=== PATIENT | female | born 1965 | race Caucasian/White ===

== ENCOUNTER 2017-02-14 01:40 | Emergency (ER) | payer MEDICAID ==
[~2017-02-14] VITALS: Ht 167.6 cm; Wt 90.7 kg
[2017-02-14 02:25] VITALS: BP 148/95
[2017-02-14 02:28] LABS: Basophils # (auto) 0.1 uL; Basophils % (auto) 0.9 % (0.0-2.0); Eosinophils # (auto) 0.4 uL; Eosinophils % (auto) 3.2 % (0.0-7.0); Hematocrit 45.5 % (36.0-46.0); Hemoglobin 15.5 g/dL (12.2-16.2); Lymphocytes % (auto) 22.1 % (10.0-50.0); Mean Corpuscular Hemoglobin 29.7 pg (28.0-32.0); Mean Corpuscular Volume 87.3 fL (80.0-100.0); Mean Platelet Volume 9.1 fL (6.9-10.8); Monocytes # (auto) 0.7 uL; Monocytes % (auto) 4.9 % (0.0-12.0); Neutrophils # (auto) 9.2 uL; Neutrophils % (auto) 68.9 % (37.0-80.0); Platelet Count (auto) 263 10^3/uL (140-450); White Blood Cell 13.4 10^3/uL (4.4-10.8)
[2017-02-14 03:21] LABS: Albumin 3.8 g/dL (3.4-5.0); BUN/Creatinine Ratio 23.7; Calcium 9.1 mg/dL (8.5-10.1); Potassium 4.3 mmol/L (3.5-5.1)
[2017-02-14 03:23] LABS: Bilirubin, Total 0.3 mg/dL (0.2-1.0); Total Protein 7.9 g/dL (6.4-8.2)
== END 2017-02-14 03:07 | disposition home or self-care (01) ==
LOC: ER 01:44
DX: L02.11 Cutaneous abscess of neck (principal); Z88.8 Allergy status to other drugs, medicaments and biological substances
CPT/HCPCS: 36415; 80053; 85025

== ENCOUNTER 2018-02-26 13:19 | Emergency (ER) | payer MEDICAID ==
[~2018-02-26] VITALS: Ht 167.6 cm; Wt 108.4 kg
[2018-02-26 13:36] VITALS: BP 131/63
== END 2018-02-26 15:19 | disposition home or self-care (01) ==
LOC: ER 13:19
DX: S30.861A Insect bite (nonvenomous) of abdominal wall, initial encounter (principal); Z88.8 Allergy status to other drugs, medicaments and biological substances; W57.XXXA Bitten or stung by nonvenomous insect and other nonvenomous arthropods, initial encounter; Y93.89 Activity, other specified; Y99.8 Other external cause status; Y92.89 Other specified places as the place of occurrence of the external cause

== ENCOUNTER 2018-03-01 19:06 | Inpatient (IN) | payer MEDICAID ==
[~2018-03-01] VITALS: Ht 167.6 cm; Wt 112.6 kg
[2018-03-01 21:28] LABS: Basophils # (auto) 0.1 uL; Basophils % (auto) 0.8 % (0.0-2.0); Eosinophils # (auto) 0.3 uL; Eosinophils % (auto) 2.7 % (0.0-7.0); Hematocrit 44.1 % (36.0-46.0); Hemoglobin 14.8 g/dL (12.2-16.2); Lymphocytes # (auto) 2.8 uL; Lymphocytes % (auto) 22.2 % (10.0-50.0); Mean Corpuscular Hemoglobin 29.3 pg (28.0-32.0); Mean Corpuscular Hgb Conc. 33.5 g/dL (32.0-36.0); Mean Corpuscular Volume 87.5 fL (80.0-100.0); Monocytes # (auto) 0.7 uL; Monocytes % (auto) 5.4 % (0.0-12.0); Neutrophils # (auto) 8.7 uL; Neutrophils % (auto) 68.9 % (37.0-80.0); Nucleated Red Blood Cells % 0.2 %; Platelet Count (auto) 357 10^3/uL (140-450); Red Blood Cells 5.04 10^6/uL (4.0-5.20); Red Cell Distribution Width 13.2 % (11.8-14.3); White Blood Cell 12.6 10^3/uL (4.4-10.8)
[2018-03-01 21:37] LABS: Albumin 4.2 g/dL (3.4-5.0); BUN/Creatinine Ratio 21.3; Calcium 8.9 mg/dL (8.5-10.1); Potassium 3.7 mmol/L (3.5-5.1)
[2018-03-01] MEDS ORDERED: VANCOMYCIN 1GM/250ML 250 ML IV ONE (21:45)
[2018-03-01] MEDS ORDERED: cefTRIAXone 1GM/50ML D5W 50 ML IV ONE (21:45)
[2018-03-01 21:47] LABS: Bilirubin, Total 0.5 mg/dL (0.2-1.0)
[2018-03-02] MEDS: SODIUM CHLORIDE 0.9% 1,000 ML IV SCH ×2 (02:00→14:34)
[2018-03-02] MEDS ORDERED: HYDROcodone-ACET 5/325MG TAB PO PRN (02:00)
[2018-03-02] MEDS ORDERED: ONDANSETRON HCL 4 MG/2 ML VIAL IV PRN (02:00)
[2018-03-02] MEDS ORDERED: ACETAMINOPHEN 500 MG TAB PO PRN (02:00)
[2018-03-02 03:15] VITALS: BP 134/76
[2018-03-02 04:59] VITALS: BP 150/74
[2018-03-02] MEDS: LEVOFLOXACIN 500MG 100 ML IV SCH (05:32)
[2018-03-02] MEDS: CLINDAMYCIN 600MG IV 50 ML IV SCH ×3 (06:02→21:31)
[2018-03-02 09:00] VITALS: BP 98/54
[2018-03-02 10:24] LABS: Basophils # (auto) 0.1 uL; Eosinophils # (auto) 0.5 uL; Hematocrit 41.1 % (36.0-46.0); Hemoglobin 13.8 g/dL (12.2-16.2); Lymphocytes # (auto) 1.6 uL; Lymphocytes % (auto) 17.8 % (10.0-50.0); Mean Corpuscular Hemoglobin 29.4 pg (28.0-32.0); Mean Corpuscular Hgb Conc. 33.5 g/dL (32.0-36.0); Mean Corpuscular Volume 87.6 fL (80.0-100.0); Monocytes # (auto) 0.7 uL; Monocytes % (auto) 7.6 % (0.0-12.0); Neutrophils # (auto) 6.3 uL; Neutrophils % (auto) 68.6 % (37.0-80.0); Platelet Count (auto) 291 10^3/uL (140-450); Red Cell Distribution Width 13.6 % (11.8-14.3); White Blood Cell 9.2 10^3/uL (4.4-10.8)
[2018-03-02 10:40] LABS: BUN/Creatinine Ratio 26.1; Calcium 8.2 mg/dL (8.5-10.1); Potassium 3.9 mmol/L (3.5-5.1)
[2018-03-02 13:00] VITALS: BP 121/70
[2018-03-02 17:00] VITALS: BP 104/64
[2018-03-02 20:13] LABS: Urine Bacteria FEW /hpf (None Seen); Urine Blood Negative /uL (Negative); Urine Hyaline Cast FEW /lpf (0 - 2); Urine Specific Gravity 1.015 (1.001-1.035); Urine WBC 1 /hpf (0 - 5)
[2018-03-02 20:20] LABS: Alcohol, Urine < 3.0 mg/dL (0-5); Amphetamine Screen, Urine POSITIVE (NEGATIVE); Barbiturate Scree,Urine NEGATIVE (NEGATIVE); Benzodiazephine Screen, Urine NEGATIVE (NEGATIVE); Cannabinoid Screen, Urine NEGATIVE (NEGATIVE); Cocaine Screen, Urine NEGATIVE (NEGATIVE); Opiate Scree,Urine NEGATIVE (NEGATIVE); Phencyclidine Screen, Urine NEGATIVE (NEGATIVE)
[2018-03-02 22:00] VITALS: BP 127/51
[2018-03-03] MEDS: SODIUM CHLORIDE 0.9% 1,000 ML IV SCH ×2 (04:34→16:06)
[2018-03-03] MEDS: LEVOFLOXACIN 500MG 100 ML IV SCH (04:36)
[2018-03-03 05:13] VITALS: BP 128/74
[2018-03-03] MEDS: CLINDAMYCIN 600MG IV 50 ML IV SCH ×3 (05:30→21:31)
[2018-03-03 05:45] LABS: Potassium 4.4 mmol/L (3.5-5.1)
[2018-03-03 05:56] LABS: BUN/Creatinine Ratio 24.1; Magnesium 2.2 mg/dL (1.6-2.6)
[2018-03-03 06:11] LABS: Calcium 8.4 mg/dL (8.5-10.1)
[2018-03-03 09:00] VITALS: BP 126/70
[2018-03-03 13:00] VITALS: BP 157/75
[2018-03-03 17:14] VITALS: BP 141/69
[2018-03-03 22:00] VITALS: BP 137/71
[2018-03-03] MEDS ORDERED: ATORVASTATIN 20 MG TAB PO SCH (22:00)
[2018-03-04] MEDS: LEVOFLOXACIN 500MG 100 ML IV SCH (04:32)
[2018-03-04 05:00] VITALS: BP 140/74
[2018-03-04] MEDS: CLINDAMYCIN 600MG IV 50 ML IV SCH (05:41)
[2018-03-04] MEDS: SODIUM CHLORIDE 0.9% 1,000 ML IV SCH (06:55)
[2018-03-04 07:22] LABS: BUN/Creatinine Ratio 21.3; Calcium 8.9 mg/dL (8.5-10.1); Potassium 4.3 mmol/L (3.5-5.1)
[2018-03-04 09:18] VITALS: BP 130/70
[2018-03-04] MEDS ORDERED: MULTIPLE VITAMINS W/ MINERALS TAB PO SCH (10:00)
[2018-03-04] MEDS ORDERED: ASCORBIC ACID 500 MG TAB PO SCH (10:00)
[2018-03-04] MEDS ORDERED: ATOR20TA PO (13:33)
[2018-03-04] MEDS ORDERED: CLIN1CAP4 PO (13:33)
[2018-03-04] MEDS ORDERED: SACC250C PO (13:33)
[2018-03-04 13:34] VITALS: BP 125/64
[2018-03-04 15:05] VITALS: BP 125/64
== END 2018-03-04 16:30 | disposition home or self-care (01) | DRG 383 ==
LOC: ER 19:06 → OVERFLOW 19:07 → WEST WING 03-02 02:28
PROVIDERS: ADMIT Nurse Practitioner Family; ATTEND Internal Medicine
DX: L03.311 Cellulitis of abdominal wall (principal); N17.0 Acute kidney failure with tubular necrosis; L03.319 Cellulitis of trunk, unspecified; F15.10 Other stimulant abuse, uncomplicated; L02.219 Cutaneous abscess of trunk, unspecified; B95.62 Methicillin resistant Staphylococcus aureus infection as the cause of diseases classified elsewhere; E78.5 Hyperlipidemia, unspecified; E86.0 Dehydration; T63.301A Toxic effect of unspecified spider venom, accidental (unintentional), initial encounter; Y92.89 Other specified places as the place of occurrence of the external cause; Z88.8 Allergy status to other drugs, medicaments and biological substances
CPT/HCPCS: 36415; 74176; 80048; 80053; 80061; 80307; 81001; 83735; 85025; 87040; 87077; 87186; 87205; 96365; 96367; 96375; A6257; J0696; J1956; J2405; J3490

== ENCOUNTER 2020-11-25 14:45 | Inpatient (IN) | payer MEDICAID ==
[~2020-11-25] VITALS: Ht 170.2 cm; Wt 110.1 kg
[~2020-11-25 14:45] MED LIST: ATOR20TA PO; CLIN300C8 PO; SACC250C PO
[2020-11-25 19:45] LABS: Basophils # (auto) 0.1 10 ^3/uL (0-0.2); Basophils % (auto) 0.6 % (0.0-2.0); Eosinophils # (auto) 0.1 10 ^3/uL (0-0.8); Eosinophils % (auto) 0.3 % (0.0-7.0); Hematocrit 47.6 % (36.0-46.0); Hemoglobin 16.6 g/dL (12.2-16.2); Lymphocytes # (auto) 2.8 10 ^3/uL (0.4-5.4); Mean Corpuscular Hemoglobin 30.1 pg (28.0-32.0); Mean Corpuscular Hgb Conc. 34.8 g/dL (32.0-36.0); Mean Corpuscular Volume 86.6 fL (80.0-100.0); Monocytes # (auto) 0.6 10 ^3/uL (0-1.3); Monocytes % (auto) 3.8 % (0.0-12.0); Neutrophils % (auto) 78.3 % (37.0-80.0); Nucleated Red Blood Cells % 0.1 %; Red Cell Distribution Width 14.1 % (11.8-14.3); White Blood Cell 16.7 10^3/uL (4.4-10.8)
[2020-11-25 20:10] LABS: Alanine Aminotransferase 24 U/L (13-56); Albumin 3.4 g/dL (3.4-5.0); Anion Gap 7 (5-15); Aspartate Aminotransferase 14 U/L (15-37); BUN/Creatinine Ratio 16.7; Blood Urea Nitrogen 18 mg/dL (7-18); Calcium 8.9 mg/dL (8.5-10.1); Carbon Dioxide 30 mmol/L (21-32); Chloride 102 mmol/L (98-107); GFR African American 68 mL/min; GFR Non-African American 56 mL/min; Glucose 110 mg/dL (74-106); Lipase 38 U/L (73-393); Potassium 4.4 mmol/L (3.5-5.1); Sodium 139 mmol/L (136-145)
[2020-11-25 20:16] LABS: Alkaline Phosphatase 143 U/L (45-117); Amylase 30 U/L (25-115); Bilirubin, Total 0.4 mg/dL (0.2-1.0); Total Protein 7.6 g/dL (6.4-8.2)
[2020-11-25 22:38] LABS: INR 0.93 (0.9-1.15)
[2020-11-26] MEDS ORDERED: IOHEXOL 300 MG/ML 100ML BOTTLE IJ ONE (00:41)
[2020-11-26] MEDS ORDERED: NITROGLYCERIN 0.4 MG SL TAB SL PRN (04:45)
[2020-11-26] MEDS ORDERED: SODIUM CHLORIDE 0.9% 1,000 ML IV SCH (04:45)
[2020-11-26] MEDS ORDERED: CIPROFLOXACIN 400MG/200ML 200 ML IV ONE (04:45)
[2020-11-26] MEDS ORDERED: metroNIDAZOLE 500MG/100ML 100 ML IV ONE (04:45)
[2020-11-26] MEDS ORDERED: MORPHINE SULF INJ 2 MG/ML SYRINGE 1ML IV PRN (04:45)
[2020-11-26] MEDS ORDERED: ONDANSETRON HCL 4 MG/2 ML VIAL IV PRN (04:45)
[2020-11-26] MEDS ORDERED: SODIUM CHLORIDE 0.9% 1,000 ML IV ONE (04:45)
[2020-11-26] MEDS: PIPERACILLIN-TAZOB 3.375GM 100 ML IV SCH ×4 (06:29→23:54)
[2020-11-26 08:40] LABS: Basophils # (auto) 0 10 ^3/uL (0-0.2); Basophils % (auto) 0.4 % (0.0-2.0); Eosinophils # (auto) 0.2 10 ^3/uL (0-0.8); Eosinophils % (auto) 1.6 % (0.0-7.0); Hematocrit 43.6 % (36.0-46.0); Hemoglobin 14.9 g/dL (12.2-16.2); Lymphocytes # (auto) 2.8 10 ^3/uL (0.4-5.4); Lymphocytes % (auto) 23.5 % (10.0-50.0); Mean Corpuscular Hemoglobin 29.9 pg (28.0-32.0); Mean Corpuscular Hgb Conc. 34.3 g/dL (32.0-36.0); Mean Corpuscular Volume 87.2 fL (80.0-100.0); Monocytes # (auto) 0.6 10 ^3/uL (0-1.3); Monocytes % (auto) 4.9 % (0.0-12.0); Neutrophils # (auto) 8.4 10 ^3/uL (1.6-8.6); Neutrophils % (auto) 69.6 % (37.0-80.0); Nucleated Red Blood Cells % 0.3 %; Red Cell Distribution Width 13.8 % (11.8-14.3)
[2020-11-26 08:46] LABS: BUN/Creatinine Ratio 21.8; Calcium 8.2 mg/dL (8.5-10.1); Potassium 3.8 mmol/L (3.5-5.1)
[2020-11-26 08:49] LABS: Bilirubin, Total 0.4 mg/dL (0.2-1.0); Total Protein 6.7 g/dL (6.4-8.2)
[2020-11-26 09:06] LABS: Urine Bacteria FEW /hpf (None Seen); Urine Blood Negative /uL (Negative); Urine WBC <1 /hpf (0 - 5)
[2020-11-26 09:18] LABS: INR 0.96 (0.9-1.15); Partial Thromboplastin Time 23.4 sec (23.0-31.2)
[2020-11-26 09:25] LABS: Urine Specific Gravity > 1.050 (1.001-1.035)
[2020-11-26 10:00] VITALS: BP 106/51
[2020-11-26 10:07] LABS: Amphetamine Screen, Urine POSITIVE (NEGATIVE); Barbiturate Scree,Urine NEGATIVE (NEGATIVE); Benzodiazephine Screen, Urine NEGATIVE (NEGATIVE); Cannabinoid Screen, Urine NEGATIVE (NEGATIVE); Cocaine Screen, Urine NEGATIVE (NEGATIVE); Opiate Scree,Urine NEGATIVE (NEGATIVE); Phencyclidine Screen, Urine NEGATIVE (NEGATIVE)
[2020-11-26 13:00] VITALS: BP 99/50
[2020-11-26] MEDS: MORPHINE SULFATE 4 MG/ML SYR/VIAL IV PRN ×2 (13:28→21:00)
[2020-11-26] MEDS: SODIUM CHLORIDE 0.9% 1,000 ML IV SCH (13:28)
[2020-11-26 17:00] VITALS: BP 120/65
[2020-11-26 22:00] VITALS: BP 115/71
[2020-11-27] MEDS: SODIUM CHLORIDE 0.9% 1,000 ML IV SCH (00:33)
[2020-11-27 05:00] VITALS: BP 149/84
[2020-11-27] MEDS: PIPERACILLIN-TAZOB 3.375GM 100 ML IV SCH ×2 (05:58)
[2020-11-27 06:00] LABS: Basophils # (auto) 0.1 10 ^3/uL (0-0.2); Basophils % (auto) 0.8 % (0.0-2.0); Eosinophils # (auto) 0.4 10 ^3/uL (0-0.8); Eosinophils % (auto) 4.1 % (0.0-7.0); Hematocrit 42.6 % (36.0-46.0); Hemoglobin 14.6 g/dL (12.2-16.2); Lymphocytes # (auto) 2.1 10 ^3/uL (0.4-5.4); Lymphocytes % (auto) 23.1 % (10.0-50.0); Mean Corpuscular Hemoglobin 29.6 pg (28.0-32.0); Mean Corpuscular Hgb Conc. 34.2 g/dL (32.0-36.0); Mean Corpuscular Volume 86.4 fL (80.0-100.0); Monocytes # (auto) 0.4 10 ^3/uL (0-1.3); Monocytes % (auto) 4.9 % (0.0-12.0); Neutrophils # (auto) 6.1 10 ^3/uL (1.6-8.6); Neutrophils % (auto) 67.1 % (37.0-80.0); Nucleated Red Blood Cells % 0.1 %; Red Blood Cells 4.93 10^6/uL (4.0-5.20); Red Cell Distribution Width 13.7 % (11.8-14.3); White Blood Cell 9.1 10^3/uL (4.4-10.8)
[2020-11-27 06:21] LABS: BUN/Creatinine Ratio 20.5; Calcium 8.3 mg/dL (8.5-10.1); Potassium 4.2 mmol/L (3.5-5.1)
[2020-11-27 09:00] VITALS: BP 140/74
[2020-11-27] MEDS ORDERED: GASTROGRAFIN 120 ML SOL ONE (09:14)
[2020-11-27 13:00] VITALS: BP 174/86
[2020-11-27] MEDS ORDERED: LEVO500T31 PO (13:35)
[2020-11-27] MEDS ORDERED: METR500T PO (13:35)
[2020-11-27 17:00] VITALS: BP 163/91
[2020-11-27 21:53] VITALS: BP 140/72
[2020-11-28] MEDS: PIPERACILLIN-TAZOB 3.375GM 100 ML IV SCH ×2 (00:56→05:52)
[2020-11-28 05:00] VITALS: BP 152/80
[2020-11-28 08:36] VITALS: BP 120/72
[2020-11-28 12:52] VITALS: BP 114/58
== END 2020-11-28 15:00 | disposition home or self-care (01) | DRG 247 ==
LOC: ER 14:45 → EDBD 14:45 → TELE 11-26 04:55 → TELE-WESTW 11-26 09:05
PROVIDERS: ADMIT Hospitalist; ATTEND Hospitalist
DX: K56.7 Ileus, unspecified (principal); D72.829 Elevated white blood cell count, unspecified; E78.00 Pure hypercholesterolemia, unspecified; K52.9 Noninfective gastroenteritis and colitis, unspecified; Z20.822 Contact with and (suspected) exposure to COVID-19; F17.210 Nicotine dependence, cigarettes, uncomplicated; K42.9 Umbilical hernia without obstruction or gangrene; E78.5 Hyperlipidemia, unspecified; Z88.8 Allergy status to other drugs, medicaments and biological substances; Z79.899 Other long term (current) drug therapy
CPT/HCPCS: 36415; 51702; 71045; 74177; 74250; 80048; 80053; 80307; 81001; 82150; 83605; 83690; 83880; 84484; 85025; 85048; 85049; 85610; 85730; 87040; 87045; 87076; 87426; 87427; 87493; 93005; 96361; 96365; 96368; G0378; J2543; J3490

== ENCOUNTER 2021-12-08 14:44 | Inpatient (IN) | payer MEDICAID ==
[~2021-12-08] VITALS: Ht 170.2 cm; Wt 114.1 kg
[~2021-12-08 14:44] MED LIST changes: -CLIN300C8 PO; +LEVO500T31 PO; +METR500T PO
[2021-12-08 16:55] LABS: Basophils # (auto) 0.1 10 ^3/uL (0-0.2); Basophils % (auto) 1.1 % (0.0-2.0); Eosinophils # (auto) 0.4 10 ^3/uL (0-0.8); Eosinophils % (auto) 4.6 % (0.0-7.0); Hematocrit 43.7 % (36.0-46.0); Hemoglobin 14.6 g/dL (12.2-16.2); Lymphocytes # (auto) 2.4 10 ^3/uL (0.4-5.4); Lymphocytes % (auto) 25.9 % (10.0-50.0); Mean Corpuscular Hgb Conc. 33.3 g/dL (32.0-36.0); Mean Corpuscular Volume 87.1 fL (80.0-100.0); Monocytes # (auto) 0.4 10 ^3/uL (0-1.3); Monocytes % (auto) 4.9 % (0.0-12.0); Neutrophils # (auto) 5.8 10 ^3/uL (1.6-8.6); Neutrophils % (auto) 63.5 % (37.0-80.0); Nucleated Red Blood Cells % 0.1 %; Red Blood Cells 5.02 10^6/uL (4.0-5.20); Red Cell Distribution Width 13.5 % (11.8-14.3); White Blood Cell 9.1 10^3/uL (4.4-10.8)
[2021-12-08 17:14] LABS: Albumin 3.3 g/dL (3.4-5.0); BUN/Creatinine Ratio 18.8; Calcium 8.6 mg/dL (8.5-10.1); Potassium 4.1 mmol/L (3.5-5.1)
[2021-12-08 17:17] LABS: Bilirubin, Total 0.3 mg/dL (0.2-1.0); Total Protein 6.5 g/dL (6.4-8.2)
[2021-12-08] MEDS ORDERED: VANCOMYCIN 1GM/250ML 250 ML IV ONE ×2 (19:15)
[2021-12-09] MEDS ORDERED: TEMAZEPAM 15 MG CAP PO PRN (01:00)
[2021-12-09] MEDS ORDERED: cefTRIAXone 1GM/50ML D5W 50 ML IV SCH (01:00)
[2021-12-09] MEDS ORDERED: ACETAMINOPHEN 325 MG TAB PO PRN (01:00)
[2021-12-09] MEDS ORDERED: ONDANSETRON HCL 4 MG/2 ML VIAL IV PRN (01:00)
[2021-12-09] MEDS ORDERED: CLINDAMYCIN 600MG IV 50 ML IV SCH (02:00)
[2021-12-09 05:20] VITALS: BP 146/81
[2021-12-09 09:00] VITALS: BP 157/62
[2021-12-09] MEDS: ENOXAPARIN SOD 40 MG/0.4 ML SYRINGE SC SCH (10:15)
[2021-12-09] MEDS: AMPICILLIN & SULBACTAM SODIUM 3 GM in SODIUM CHL 0.9% 100 ML IV SCH ×3 (10:15→22:09)
[2021-12-09] MEDS: PANTOPRAZOLE 40 MG TAB PO SCH (10:15)
[2021-12-09 10:36] LABS: Basophils # (auto) 0.1 10 ^3/uL (0-0.2); Basophils % (auto) 0.9 % (0.0-2.0); Eosinophils # (auto) 0.3 10 ^3/uL (0-0.8); Eosinophils % (auto) 4.2 % (0.0-7.0); Hematocrit 42.5 % (36.0-46.0); Lymphocytes # (auto) 1.7 10 ^3/uL (0.4-5.4); Lymphocytes % (auto) 20.5 % (10.0-50.0); Mean Corpuscular Hemoglobin 28.9 pg (28.0-32.0); Mean Corpuscular Hgb Conc. 32.9 g/dL (32.0-36.0); Mean Corpuscular Volume 87.9 fL (80.0-100.0); Monocytes # (auto) 0.5 10 ^3/uL (0-1.3); Monocytes % (auto) 6.3 % (0.0-12.0); Neutrophils # (auto) 5.6 10 ^3/uL (1.6-8.6); Neutrophils % (auto) 68.1 % (37.0-80.0); Red Blood Cells 4.84 10^6/uL (4.0-5.20); Red Cell Distribution Width 13.8 % (11.8-14.3); White Blood Cell 8.2 10^3/uL (4.4-10.8)
[2021-12-09 11:02] LABS: Calcium 8.5 mg/dL (8.5-10.1); Potassium 4.1 mmol/L (3.5-5.1)
[2021-12-09 11:05] LABS: BUN/Creatinine Ratio 25.4
[2021-12-09 13:00] VITALS: BP 151/71
[2021-12-09 17:00] VITALS: BP 131/74
[2021-12-09] MEDS ORDERED: ERGOCALCIFEROL 50,000 UNIT(1.25MG) CAP PO SCH (18:00)
[2021-12-09] MEDS: FUROSEMIDE 40 MG/4 ML VIAL IV SCH (18:23)
[2021-12-09 22:00] VITALS: BP 143/89
[2021-12-10] MEDS: AMPICILLIN & SULBACTAM SODIUM 3 GM in SODIUM CHL 0.9% 100 ML IV SCH ×3 (03:48→13:48)
[2021-12-10 05:00] VITALS: BP 138/63
[2021-12-10] MEDS: FUROSEMIDE 40 MG/4 ML VIAL IV SCH ×2 (05:43→18:04)
[2021-12-10 06:20] LABS: Basophils # (auto) 0.1 10 ^3/uL (0-0.2); Eosinophils # (auto) 0.4 10 ^3/uL (0-0.8); Hematocrit 44.1 % (36.0-46.0); Hemoglobin 14.8 g/dL (12.2-16.2); Lymphocytes # (auto) 2.1 10 ^3/uL (0.4-5.4); Lymphocytes % (auto) 27.6 % (10.0-50.0); Mean Corpuscular Hemoglobin 28.9 pg (28.0-32.0); Mean Corpuscular Hgb Conc. 33.5 g/dL (32.0-36.0); Mean Corpuscular Volume 86.2 fL (80.0-100.0); Monocytes # (auto) 0.5 10 ^3/uL (0-1.3); Monocytes % (auto) 6.4 % (0.0-12.0); Neutrophils # (auto) 4.5 10 ^3/uL (1.6-8.6); Red Blood Cells 5.11 10^6/uL (4.0-5.20); Red Cell Distribution Width 13.4 % (11.8-14.3); White Blood Cell 7.5 10^3/uL (4.4-10.8)
[2021-12-10 06:49] LABS: BUN/Creatinine Ratio 21.3; Calcium 8.6 mg/dL (8.5-10.1); Potassium 3.9 mmol/L (3.5-5.1)
[2021-12-10] MEDS: ENOXAPARIN SOD 40 MG/0.4 ML SYRINGE SC SCH (08:02)
[2021-12-10] MEDS: PANTOPRAZOLE 40 MG TAB PO SCH (08:02)
[2021-12-10 10:21] VITALS: BP 155/85
[2021-12-10 13:00] VITALS: BP 169/97
[2021-12-10 17:17] VITALS: BP 144/88
[2021-12-10 22:00] VITALS: BP 123/60
[2021-12-11] MEDS: AMPICILLIN & SULBACTAM SODIUM 3 GM in SODIUM CHL 0.9% 100 ML IV SCH ×5 (00:57→14:00)
[2021-12-11 05:09] VITALS: BP 133/57
[2021-12-11] MEDS: FUROSEMIDE 40 MG/4 ML VIAL IV SCH (06:58)
[2021-12-11 09:00] VITALS: BP 131/57
[2021-12-11] MEDS: PANTOPRAZOLE 40 MG TAB PO SCH (09:30)
[2021-12-11] MEDS: ENOXAPARIN SOD 40 MG/0.4 ML SYRINGE SC SCH (09:31)
[2021-12-11 14:41] LABS: Alcohol, Urine < 3.0 mg/dL (0-10); Amphetamine Screen, Urine POSITIVE (NEGATIVE); Barbiturate Scree,Urine NEGATIVE (NEGATIVE); Benzodiazephine Screen, Urine NEGATIVE (NEGATIVE); Cannabinoid Screen, Urine NEGATIVE (NEGATIVE); Cocaine Screen, Urine NEGATIVE (NEGATIVE); Opiate Scree,Urine NEGATIVE (NEGATIVE); Phencyclidine Screen, Urine NEGATIVE (NEGATIVE)
[2021-12-11 14:44] LABS: Urine Bacteria FEW /hpf (None Seen); Urine Blood Negative /uL (Negative); Urine Specific Gravity 1.018 (1.001-1.035); Urine WBC 1 /hpf (0 - 5)
[2021-12-11 17:42] VITALS: BP 133/57
== END 2021-12-11 18:10 | disposition home or self-care (01) | DRG 194 ==
LOC: ER 14:44 → OVERFLOW 12-09 00:50 → EAST 12-09 05:09
PROVIDERS: ADMIT Nurse Practitioner; ATTEND Internal Medicine
DX: I50.41 Acute combined systolic (congestive) and diastolic (congestive) heart failure (principal); L03.116 Cellulitis of left lower limb; E55.9 Vitamin D deficiency, unspecified; E66.01 Morbid (severe) obesity due to excess calories; R73.03 Prediabetes; I08.0 Rheumatic disorders of both mitral and aortic valves; F17.210 Nicotine dependence, cigarettes, uncomplicated; F15.10 Other stimulant abuse, uncomplicated; Z88.8 Allergy status to other drugs, medicaments and biological substances; Z80.1 Family history of malignant neoplasm of trachea, bronchus and lung; Z20.822 Contact with and (suspected) exposure to COVID-19; Z85.118 Personal history of other malignant neoplasm of bronchus and lung; Z68.39 Body mass index [BMI] 39.0-39.9, adult
CPT/HCPCS: 36415; 71045; 80048; 80053; 80061; 80307; 81001; 82306; 83036; 83735; 83880; 84443; 84484; 85025; 87040; 93306; 96365; 96367; G0378; J0696; J3490

== ENCOUNTER 2023-06-17 20:21 | Emergency (ER) | payer MEDICAID ==
[~2023-06-17] VITALS: Ht 170.2 cm; Wt 119.5 kg
[2023-06-17] MEDS ORDERED: TETRACAINE HCL 0.5% OPTH(EYE) SOLN 4ML RIGHTEYE ONE (23:15)
[2023-06-17] MEDS ORDERED: FLUORESCEIN SOD OPTH TEST STRIP RIGHTEYE ONE (23:15)
[2023-06-17 23:20] VITALS: BP 165/84; PULSE 94; RESP 20; TEMP 97.4; O2SAT 98
[2023-06-17] MEDS ORDERED: ERY05OO OP (23:26)
== END 2023-06-17 23:41 | disposition home or self-care (01) ==
LOC: ER 20:21
DX: H10.89 Other conjunctivitis (principal); B96.89 Other specified bacterial agents as the cause of diseases classified elsewhere; F17.210 Nicotine dependence, cigarettes, uncomplicated; Z79.2 Long term (current) use of antibiotics; Z88.8 Allergy status to other drugs, medicaments and biological substances

== ENCOUNTER 2023-11-14 00:26 | Emergency (ER) | payer MEDICAID ==
[~2023-11-14 00:26] MED LIST changes: -ATOR20TA PO; +ERY05OO OP; -LEVO500T31 PO; -METR500T PO; -SACC250C PO
[2023-11-14 08:17] LABS: Urine Bacteria FEW /hpf (None Seen); Urine Blood Negative /uL (Negative); Urine Clarity Clear (Clear); Urine Color Light-Yellow (Yellow); Urine Mucus FEW (None Seen); Urine Protein, UAD Negative (Negative); Urine Specific Gravity 1.023 (1.001-1.035); Urine Urobilinogen Normal (Negative); Urine WBC 3 /hpf (0 - 5); Urine pH 5.5 (5.0-9.0)
[2023-11-15] MEDS ORDERED: cefTRIAXone 1GM/50ML D5W 50 ML IV ONE (09:50)
== END 2023-11-14 07:43 | disposition left against medical advice (07) ==
LOC: ER 00:26
DX: M79.606 Pain in leg, unspecified (principal); Z53.21 Procedure and treatment not carried out due to patient leaving prior to being seen by health care provider
CPT/HCPCS: 81001

== ENCOUNTER 2023-11-14 07:41 | Inpatient (IN) | payer MEDICAID ==
[~2023-11-14] VITALS: Ht 170.2 cm; Wt 125.7 kg
[2023-11-14] MEDS: cefTRIAXone 1GM/50ML D5W 50 ML IV ONE (08:46)
[2023-11-14] MEDS: CLINDAMYCIN 900MG IV 50 ML IV ONE (08:46)
[2023-11-14 08:59] LABS: Basophils # (auto) 0.1 10 ^3/uL (0-0.2); Basophils % (auto) 0.6 % (0.0-2.0); Eosinophils # (auto) 0.4 10 ^3/uL (0-0.8); Eosinophils % (auto) 5.1 % (0.0-7.0); Hematocrit 41.7 % (36.0-46.0); Lymphocytes % (auto) 23.2 % (10.0-50.0); Mean Corpuscular Hemoglobin 29.6 pg (28.0-32.0); Mean Corpuscular Hgb Conc. 33.5 g/dL (32.0-36.0); Mean Corpuscular Volume 88.1 fL (80.0-100.0); Monocytes # (auto) 0.5 10 ^3/uL (0-1.3); Monocytes % (auto) 5.4 % (0.0-12.0); Neutrophils # (auto) 5.7 10 ^3/uL (1.6-8.6); Neutrophils % (auto) 65.7 % (37.0-80.0); Nucleated Red Blood Cells % 0.1 %; Red Blood Cells 4.73 10^6/uL (4.0-5.20); Red Cell Distribution Width 14.7 % (11.8-14.3); White Blood Cell 8.7 10^3/uL (4.4-10.8)
[2023-11-14 09:13] LABS: Anion Gap 6 (5-15); Carbon Dioxide 25 mmol/L (20-30); Chloride 110 mmol/L (98-107); Sodium 141 mmol/L (136-145)
[2023-11-14] MEDS: HYDROcodone-ACET 10/325MG TAB PO ONE (09:14)
[2023-11-14 09:15] LABS: Calcium 8.9 mg/dL (8.5-10.1)
[2023-11-14 09:19] LABS: BUN/Creatinine Ratio 22.5 (10.0-20.0); Blood Urea Nitrogen 18 mg/dL (9-23); Glucose 142 mg/dL (74-106)
[2023-11-14 09:23] LABS: Lactic Acid w/Reflex 2.7 mmol/L (0.4-2.0)
[2023-11-14 09:34] LABS: Urine Bacteria FEW /hpf (None Seen); Urine Blood 2+ /uL (Negative); Urine Clarity Clear (Clear); Urine Color Light-Yellow (Yellow); Urine Protein, UAD Negative (Negative); Urine Specific Gravity 1.026 (1.001-1.035); Urine Urobilinogen Normal (Negative); Urine WBC 2 /hpf (0 - 5); Urine pH 5.5 (5.0-9.0)
[2023-11-14 09:46] LABS: Amphetamine Screen, Urine Pos (NEGATIVE); Barbiturate Scree,Urine Neg (NEGATIVE); Benzodiazephine Screen, Urine Neg (NEGATIVE); Cannabinoid Screen, Urine Neg (NEGATIVE); Cocaine Screen, Urine Neg (NEGATIVE); Opiate Scree,Urine Neg (NEGATIVE); Phencyclidine Screen, Urine Neg (NEGATIVE)
[2023-11-14] MEDS ORDERED: ACETAMINOPHEN 325 MG TAB PO PRN (10:15)
[2023-11-14 10:54] LABS: Triglycerides 173 mg/dL (< 150)
[2023-11-14 10:55] LABS: LDL Cholesterol 157 mg/dL (< 100)
[2023-11-14 10:56] LABS: Cholesterol 208 mg/dL (< 200); HDL Cholesterol 48 mg/dL (40-59)
[2023-11-14] MEDS ORDERED: ALBUTEROL SULF 2.5 MG/0.5ML(0.5%) NEB SOLN NEB PRN (11:00)
[2023-11-14] MEDS: SODIUM CHLORIDE 0.9% 1,000 ML IV ONE ×2 (11:46)
[2023-11-14 12:00] VITALS: BP 147/60; PULSE 71; RESP 18; TEMP 97.6; O2SAT 97
[2023-11-14 13:00] VITALS: BP 147/60; PULSE 71; RESP 18; TEMP 97.6; O2SAT 97
[2023-11-14] MEDS: SODIUM CHLORIDE 0.9% 1,000 ML IV SCH (14:17)
[2023-11-14] MEDS: CLINDAMYCIN 600MG IV 50 ML IV SCH (14:17)
[2023-11-14 17:00] VITALS: BP 147/61; PULSE 78; RESP 18; TEMP 97; O2SAT 96
[2023-11-14] MEDS: HYDROcodone-ACET 5/325MG TAB PO PRN (19:31)
[2023-11-14 20:11] VITALS: PULSE 85; RESP 18; O2SAT 98
[2023-11-14 21:00] VITALS: BP 120/58; PULSE 81; RESP 20; TEMP 97.9; O2SAT 92
[2023-11-15] VITALS (7 sets, daily range): BP systolic 105–150; BP diastolic 51–80; PULSE 64–83; RESP 18–21; TEMP 97.3–97.9; O2SAT 94–100
[2023-11-15 08:44] LABS: Basophils # (auto) 0.1 10 ^3/uL (0-0.2); Basophils % (auto) 0.8 % (0.0-2.0); Eosinophils # (auto) 0.4 10 ^3/uL (0-0.8); Eosinophils % (auto) 4.5 % (0.0-7.0); Hematocrit 43.8 % (36.0-46.0); Hemoglobin 14.6 g/dL (12.2-16.2); Lymphocytes # (auto) 1.9 10 ^3/uL (0.4-5.4); Lymphocytes % (auto) 20.7 % (10.0-50.0); Mean Corpuscular Hemoglobin 29.4 pg (28.0-32.0); Mean Corpuscular Hgb Conc. 33.3 g/dL (32.0-36.0); Mean Corpuscular Volume 88.2 fL (80.0-100.0); Monocytes # (auto) 0.5 10 ^3/uL (0-1.3); Monocytes % (auto) 5.2 % (0.0-12.0); Neutrophils # (auto) 6.5 10 ^3/uL (1.6-8.6); Neutrophils % (auto) 68.8 % (37.0-80.0); Nucleated Red Blood Cells % 0.1 %; Red Blood Cells 4.96 10^6/uL (4.0-5.20); Red Cell Distribution Width 14.5 % (11.8-14.3); White Blood Cell 9.4 10^3/uL (4.4-10.8)
[2023-11-15 09:04] LABS: Alanine Aminotransferase 29 U/L (7-40); Alkaline Phosphatase 124 U/L (46-116); Anion Gap 5 (5-15); Aspartate Aminotransferase 21 U/L (13-40); BUN/Creatinine Ratio 17.1 (10.0-20.0); Bilirubin, Total 0.4 mg/dL (0.2-1.0); Blood Urea Nitrogen 12 mg/dL (9-23); Calcium 9.2 mg/dL (8.5-10.1); Carbon Dioxide 27 mmol/L (20-30); Chloride 108 mmol/L (98-107); Glucose 121 mg/dL (74-106); Potassium 4.5 mmol/L (3.5-5.1); Sodium 140 mmol/L (136-145); Total Protein 6.3 g/dL (5.7-8.2)
[2023-11-15] MEDS: cefTRIAXone 1GM/50ML D5W 50 ML IV SCH (10:44)
[2023-11-15] MEDS: ENOXAPARIN SOD 40 MG/0.4 ML SYRINGE SC SCH (10:44)
[2023-11-16] VITALS (7 sets, daily range): BP systolic 125–174; BP diastolic 62–91; PULSE 72–85; RESP 18–20; TEMP 97.4–98; O2SAT 94–99
[2023-11-16 06:11] LABS: Basophils # (auto) 0.1 10 ^3/uL (0-0.2); Basophils % (auto) 1.2 % (0.0-2.0); Eosinophils # (auto) 0.4 10 ^3/uL (0-0.8); Hematocrit 44.3 % (36.0-46.0); Hemoglobin 15.3 g/dL (12.2-16.2); Lymphocytes # (auto) 2.1 10 ^3/uL (0.4-5.4); Lymphocytes % (auto) 22.3 % (10.0-50.0); Mean Corpuscular Hemoglobin 30.2 pg (28.0-32.0); Mean Corpuscular Hgb Conc. 34.5 g/dL (32.0-36.0); Mean Corpuscular Volume 87.5 fL (80.0-100.0); Monocytes # (auto) 0.6 10 ^3/uL (0-1.3); Neutrophils # (auto) 6.2 10 ^3/uL (1.6-8.6); Neutrophils % (auto) 66.5 % (37.0-80.0); Nucleated Red Blood Cells % 0.1 %; Red Blood Cells 5.06 10^6/uL (4.0-5.20); Red Cell Distribution Width 14.1 % (11.8-14.3); White Blood Cell 9.4 10^3/uL (4.4-10.8)
[2023-11-16 06:26] LABS: Anion Gap 3 (5-15); Carbon Dioxide 30 mmol/L (20-30); Chloride 106 mmol/L (98-107); Potassium 4.2 mmol/L (3.5-5.1); Sodium 139 mmol/L (136-145)
[2023-11-16 06:27] LABS: Calcium 9.8 mg/dL (8.7-10.4)
[2023-11-16 06:32] LABS: BUN/Creatinine Ratio 17.8 (10.0-20.0); Blood Urea Nitrogen 13 mg/dL (9-23); Glucose 100 mg/dL (74-106)
[2023-11-16] MEDS: hydrALAZINE HCL 20 MG/ML VL IV PRN (08:54)
[2023-11-16 10:26] LABS: Hepatitis B Surface Antigen Negative (Negative)
[2023-11-16 10:47] LABS: Hepatitis C Antibody Negative (Negative)
[2023-11-17 05:00] VITALS: BP 93/48; PULSE 80; RESP 15; TEMP 97.8; O2SAT 94
[2023-11-17 07:13] LABS: Basophils # (auto) 0.1 10 ^3/uL (0-0.2); Basophils % (auto) 0.9 % (0.0-2.0); Eosinophils # (auto) 0.2 10 ^3/uL (0-0.8); Eosinophils % (auto) 2.4 % (0.0-7.0); Hemoglobin 16.1 g/dL (12.2-16.2); Lymphocytes # (auto) 1.9 10 ^3/uL (0.4-5.4); Lymphocytes % (auto) 19.6 % (10.0-50.0); Mean Corpuscular Hemoglobin 29.9 pg (28.0-32.0); Mean Corpuscular Hgb Conc. 34.2 g/dL (32.0-36.0); Mean Corpuscular Volume 87.4 fL (80.0-100.0); Monocytes # (auto) 0.6 10 ^3/uL (0-1.3); Monocytes % (auto) 5.6 % (0.0-12.0); Neutrophils % (auto) 71.5 % (37.0-80.0); Nucleated Red Blood Cells % 0.2 %; Red Blood Cells 5.37 10^6/uL (4.0-5.20); Red Cell Distribution Width 14.6 % (11.8-14.3); White Blood Cell 9.8 10^3/uL (4.4-10.8)
[2023-11-17 07:30] LABS: Calcium 9.8 mg/dL (8.5-10.1); Chloride 104 mmol/L (98-107); Potassium 3.9 mmol/L (3.5-5.1); Sodium 138 mmol/L (136-145)
[2023-11-17 07:31] LABS: Anion Gap 8 (5-15); Carbon Dioxide 26 mmol/L (20-30)
[2023-11-17 07:36] LABS: BUN/Creatinine Ratio 15.2 (10.0-20.0); Blood Urea Nitrogen 12 mg/dL (9-23); Glucose 111 mg/dL (74-106)
[2023-11-17 08:00] VITALS: PULSE 76; RESP 18; O2SAT 96
[2023-11-17 09:00] VITALS: BP 141/73; PULSE 87; RESP 20; TEMP 97.9; O2SAT 97
[2023-11-17] MEDS ORDERED: AMOX500T86 PO (09:47)
[2023-11-17 13:00] VITALS: BP 104/45; PULSE 80; RESP 20; TEMP 98.1; O2SAT 97
== END 2023-11-17 13:51 | disposition home or self-care (01) | DRG 383 ==
LOC: ER 07:41 → OVERFLOW 10:17 → WEST WING 11:43
PROVIDERS: ADMIT Nurse Practitioner Family; ATTEND Internal Medicine Pulmonary Disease
DX: L03.116 Cellulitis of left lower limb (principal); E87.20 Acidosis, unspecified; E66.01 Morbid (severe) obesity due to excess calories; F15.10 Other stimulant abuse, uncomplicated; F17.210 Nicotine dependence, cigarettes, uncomplicated; L03.115 Cellulitis of right lower limb; E78.5 Hyperlipidemia, unspecified; F19.10 Other psychoactive substance abuse, uncomplicated; Z71.3 Dietary counseling and surveillance; Z68.41 Body mass index [BMI] 40.0-44.9, adult; Z79.899 Other long term (current) drug therapy
CPT/HCPCS: 36415; 80048; 80053; 80061; 80307; 81001; 83605; 83880; 84443; 85025; 86803; 87040; 87340; 93970; 96365; G0378; J3490